=== PATIENT | male | born 1970 | race Caucasian/White ===

== ENCOUNTER 2021-06-13 12:33 | Inpatient (IN) | payer BC ==
[2021-06-13 12:51] VITALS: BMI 23.5
[2021-06-13] MEDS ORDERED: MENTHOL/PHENOL 1 EACH UD MM PRN (13:17)
[2021-06-13] MEDS ORDERED: ONDANSETRON *ODT* 4 MG TABLET SL PRN (13:17)
[2021-06-13] MEDS ORDERED: IBUPROFEN 400 MG TABLET (FP) PO PRN (13:17)
[2021-06-13] MEDS ORDERED: MAG HYDROX/AL HYDROX/SIMETH 30 ML UNIT-DOSE CUP PO PRN (13:17)
[2021-06-13] MEDS ORDERED: ACETAMINOPHEN 325 MG TABLET (FP) PO PRN ×2 (13:17)
[2021-06-13] MEDS ORDERED: MAGNESIUM CITRATE 300 ML BOTTLE PO PRN (13:17)
[2021-06-13] MEDS ORDERED: LORazepam 1 MG TABLET PO PRN (13:17)
[2021-06-13] MEDS ORDERED: BISMUTH SUBSALICYLATE 524 MG/30 ML PO PRN (13:17)
[2021-06-13] MEDS ORDERED: LOPERAMIDE HCL 2 MG CAPSULE PO PRN (13:17)
[2021-06-13] MEDS ORDERED: MAGNESIUM HYDROX 2400MG/30ML ORAL SUSPENSION 30 ML CUP PO PRN (13:17)
[2021-06-13] MEDS ORDERED: METHOCARBAMOL 500 MG TABLET PO PRN (13:17)
[2021-06-13] MEDS ORDERED: NICOTINE 10 MG CARTRIDGE (INHALER) IH PRN (13:17)
[2021-06-13] MEDS: hydrOXYzine PAMOATE 25 MG CAPSULE (FP) PO SCH ×3 (14:19→22:27)
[2021-06-13] MEDS: LORazepam 2 MG TABLET PO SCH ×2 (18:19→22:27)
[2021-06-13] MEDS: MELATONIN 5 MG TABLETS PO SCH (22:27)
[2021-06-13] MEDS: THIAMINE HCL 100 MG TABLET (FP) PO SCH (22:28)
[2021-06-14] MEDS: hydrOXYzine PAMOATE 25 MG CAPSULE (FP) PO SCH ×5 (06:07→22:09)
[2021-06-14] MEDS: LORazepam 2 MG TABLET PO SCH ×4 (06:08→22:11)
[2021-06-14] MEDS ORDERED: PRENATAL VITAMINS W/ FOLIC ACID TABLET (FP) PO SCH (10:00)
[2021-06-14 10:57] LABS: HEMATOCRIT 46.8 % (35.4-49); HEMOGLOBIN 15.8 GM/dL (11.7-16.9); MCH 32.4 pg (25.7-33.7); MCHC 33.7 g/dl (32.0-35.9); MEAN PLT VOLUME 7.9 fl (7.5-11.1); PLATELET COUNT 197 10^3/uL (134-434); RBC 4.88 M/mm3 (4.00-5.60); RDW 13.6 % (11.9-15.9); WHITE BLOOD COUNT 8.3 K/mm3 (4.0-10.0)
[2021-06-14 10:58] LABS: ALBUMIN 3.4 g/dl (3.4-5.0); BLOOD UREA NITROGEN 9.6 mg/dL (7-18)
[2021-06-14 11:01] LABS: CREATININE 0.7 mg/dL (0.55-1.3)
[2021-06-14 11:03] LABS: BILIRUBIN,TOTAL 0.7 mg/dL (0.2-1); TOT PROT 7.2 g/dl (6.4-8.2)
[2021-06-14] MEDS: MELATONIN 5 MG TABLETS PO SCH (22:09)
[2021-06-14] MEDS: THIAMINE HCL 100 MG TABLET (FP) PO SCH (22:09)
[2021-06-15] MEDS ORDERED: LORazepam 1 MG TABLET PO SCH (05:00)
[2021-06-15] MEDS: hydrOXYzine PAMOATE 25 MG CAPSULE (FP) PO SCH (06:10)
[2021-06-15 09:23] VITALS: BP 128/78; PULSE 75; TEMP 98.2
[2021-06-15 14:07] LABS: SARS-CoV-2 NAA Not Detected (Not Detected)
[2021-06-16] MEDS ORDERED: LORazepam 0.5 MG TABLET PO PRN
[2021-06-16] MEDS ORDERED: LORazepam 0.5 MG TABLET PO SCH (05:00)
[2021-06-17] MEDS ORDERED: LORazepam 0.5 MG TABLET PO ONE (05:00)
== END 2021-06-15 09:21 | disposition left against medical advice (07) | DRG 770 ==
LOC: YASAS 12:33 → Y6N 13:25
PROVIDERS: ADMIT Allergy & Immunology; ATTEND Allergy & Immunology
PROC: HZ2ZZZZ Detoxification Services for Substance Abuse Treatment (ICD-10-PCS; principal; 2021-06-13)
DX: F10.230 Alcohol dependence with withdrawal, uncomplicated (principal); F14.10 Cocaine abuse, uncomplicated; F17.210 Nicotine dependence, cigarettes, uncomplicated; K70.30 Alcoholic cirrhosis of liver without ascites
CPT/HCPCS: 36415; 80053; 85027; 86780; 87811; C9803; U0003; U0005